=== PATIENT | female | born 1990 ===

== ENCOUNTER 2021-10-05 05:46 | Day surgery (SDC) | payer OTHER ==
[~2021-10-05 05:46] MED LIST: LEVOTHYROXINE25 MCG PO
[2021-10-05] MEDS ORDERED: NAPR500T14 PO (08:23)
[2021-10-05] MEDS ORDERED: MORGIDOX100 MG PO (08:23)
== END 2021-10-05 12:10 | disposition home or self-care (01) ==
LOC: CIR.AMB 05:46
PROVIDERS: ATTEND Obstetrics & Gynecology
DX: D25.0 Submucous leiomyoma of uterus (principal); E03.9 Hypothyroidism, unspecified; G43.909 Migraine, unspecified, not intractable, without status migrainosus; R42 Dizziness and giddiness